=== PATIENT | female | born 1990 | race Two or more races ===

== ENCOUNTER 2025-05-22 21:27 | Emergency (ER) | payer OTHER ==
[~2025-05-22] VITALS: Ht 152.4 cm; Wt 77.1 kg
[2025-05-22] MEDS ORDERED: KETOROLAC TROMETHAMINE INJ 30 MG/ML VIAL ONE (23:05)
[2025-05-22] MEDS: KETOROLAC TROMETHAMINE INJ 30 MG/ML VIAL IM ONE (23:21)
[2025-05-23] MEDS ORDERED: IBUP-1490 PO (01:13)
[2025-05-23 01:41] VITALS: BP 130/71; TEMP 98; O2SAT 98
== END 2025-05-23 01:41 | disposition home or self-care (01) ==
LOC: ER 21:29
DX: S93.402A Sprain of unspecified ligament of left ankle, initial encounter (principal); S73.192A Other sprain of left hip, initial encounter; S09.8XXA Other specified injuries of head, initial encounter; Z60.2 Problems related to living alone; W01.0XXA Fall on same level from slipping, tripping and stumbling without subsequent striking against object, initial encounter; Y93.89 Activity, other specified; Y92.89 Other specified places as the place of occurrence of the external cause; Y99.8 Other external cause status
CPT/HCPCS: 99285; 70450; 96372; 73610; 73503; 73564; 72192; J1885; 73502